=== PATIENT | male | born 2000 | race Caucasian/White ===

== ENCOUNTER 2025-03-20 12:51 | Emergency (ER) | payer BC, SELFPAY ==
[2025-03-20 12:58] VITALS: BP 137/80
[2025-03-20] MEDS: ZOFRAN ODT (ORALLY DISINTEGRATING) 4 MG PO (13:03)
[2025-03-20 13:20] LABS: Hematocrit 45.5 % (39.0-52.0); Hemoglobin 16.2 g/dL (13.0-18.0); Mean Corp Hgb Conc. 35.6 g/dL (33.0-37.0); Mean Corpuscular Volume 84.1 fL (80.0-94.0); Nucleated Red Blood Cells % 0 % (-); Platelet Count 253 10^3/uL (130-400); Red Cell Dist. Width 12.1 % (11.5-14.5)
[2025-03-20 13:51] LABS: ALT (SGPT) 23 U/L (0-50); AST (SGOT) 30 U/L (17-59); Albumin 5.5 g/dl (3.5-5.0); Alkaline Phosphatase 66 U/L (38-126); Blood Urea Nitrogen 16 mg/dl (9-20); Calcium 10.4 mg/dl (8.4-10.2); Carbon Dioxide 25 mmol/L (22-30); Chloride 102 mmol/L (98-107); Glucose 120 mg/dl (70-99); Lipase 45 U/L (23-300); Potassium 3.8 mmol/L (3.5-5.1); Sodium 139 mmol/L (135-145); Total Protein 8.0 g/dl (6.3-8.2); eGFR > 60.00
--- NOTE | 2025-03-20 15:21 | EDRN ---
Dr. Evans in to see pt at this time.
[2025-03-20] MEDS: NSS 1000 IV (15:33)
[2025-03-20] MEDS: PROTONIX IV 40 MG IV (15:40)
[2025-03-20] MEDS: ZOFRAN 4 MG IV (15:40)
[2025-03-20 15:45] VITALS: BMI 26.5
[2025-03-20 16:10] VITALS: BP 127/97
--- NOTE | 2025-03-20 16:48 | ED.GENMED ---
History of Present Illness
General
Chief Complaint: Abdominal Symptoms
Source: patient
Exam Limitations: none
Time Seen by Provider: 03/20/25 15:15
Nursing documentation reviewed up to this point in time: agreed with
History of Present Illness
History of Present Illness:
Patient presents to ED secondary to persistent nausea and vomiting over the past 4 days. Symptoms started while he was eating buffet lunch on Wednesday afternoon. Patient has had persistent vomiting episodes over the next 2 days. Yesterday, patient
states that he did not have any vomiting episodes and was under the impression that his symptoms may have resolved. However, today, patient states that his symptoms have returned with more vomiting episodes. Denies fever or chills. Denies
diarrhea. Unfortunately, patient states that he has had similar episodes in the past, at least twice a year but has not had any follow-up with GI physician., Denies recent travel. Denies sick contact. Denies recent change in diet. Denies recent
weight loss.
Past History
Past History
ED Past Medical History: None
ED Past Surgical History: Other
Social History
Tobacco: Non-smoker
Drug: None
Personal: Single
Living: with family
Employment: Student
Family History
Family History: Other
Review of Systems
Review of Systems
Allergies reviewed?: Yes
Constitutional: Reports no symptoms; Denies fever
Respiratory: Reports no symptoms
Cardiac: Reports no symptoms
ABD/GI: Reports nausea and vomiting; Denies diarrhea
Musculoskeletal: Reports no symptoms
Skin: Reports no symptoms
Neurological: Reports no symptoms
Phy Exam
Physical Exam
Physical Exam:
Physical Exam
General: no apparent distress, not acutely ill. afebrile
Head: nc/at. eomi
Neck: supple. no meningeal signs.
Heart: s1/s2 regular rate and rhythm
Lungs: no acute respiratory distress. clear bilaterally
Abdomen: normal bowel sounds. not tender.no distention
Neuro: alert and oriented x 3. no focal neurological deficits
Skin: no rash
Psychiatric: well kept. interactive and cooperative
Extremities: no edema. no calf tenderness.
Course
Orders/Labs/Results
Orders:
Orders
03/20/25 13:02
Ondansetron Orally Disint [Zofran Odt (Orally Disintegrating)] 4 mg .ROUTE .STK-MED ONE
03/20/25 13:03
Ondansetron Orally Disint [Zofran Odt (Orally Disintegrating)] 4 mg PO NOW STA
03/20/25 13:13
Complete Blood Count/With Diff Urgent
Comprehensive Metabolic Panel Urgent
Lipase Urgent
03/20/25 15:30
0.9% Sodium Chloride 1000 ml [Nss] 1,000 ml IV BOLUS
Ondansetron Injectable [Zofran] 4 mg IV NOW STA
Pantoprazole [Protonix IV] 40 mg IV NOW STA
Abnormal Lab Results
03/20/25
13:13
Absolute Lymphs (auto) 0.9 L 10^3/uL
(1.2-3.4)
Neutrophils % 81.6 H %
(42.2-75.2)
Lymphocytes % 12.6 L %
(20.5-51.1)
Glucose 120 H mg/dl
(70-99)
Calcium 10.4 H mg/dl
(8.4-10.2)
Total Bilirubin 2.1 H mg/dl
(0.2-1.3)
Albumin 5.5 H g/dl
(3.5-5.0)
03/20/25 13:13
03/20/25 13:13
Vital Signs
Initial and Last Documented VS:
Initial Vital Signs
Temp Pulse Resp BP Pulse Ox
97.8 F 61 16 137/80 100
03/20/25 12:58 03/20/25 12:58 03/20/25 12:58 03/20/25 12:58 03/20/25 12:58
Last Documented Vital Signs
Temp Pulse Resp BP Pulse Ox
97.8 F 74 16 127/97 100
03/20/25 12:58 03/20/25 16:10 03/20/25 16:10 03/20/25 16:10 03/20/25 16:51
MDM/Problems Addressed
MDM/Problems Addressed:
Patient without any further vomiting episodes after treatment in ED. otherwise, patient remains afebrile, hemodynamically stable, and nontoxic-appearing, during observation in the ED. Patient presenting symptoms nonspecific, likely secondary to
underlying gastritis versus food reaction versus viral illness. However, in light of patient's multiple episodes over the years, patient will be referred to gastroenterology service as an outpatient for consultation. Return precautions provided.
*Pulse Oximetry
SaO2: 100
Oxygen Mode of Delivery: Room air
Patient hypoxic: no
*Critical Care Note
Total Time (30-74mins, 75-104mins- exclusive of procedures): Not Applicable
ED Attending Note
-
Portions of this chart may have been created with voice recognition software.� Occasional wrong word or��sound alike� substitutions may have occurred due to the inherent limitations of voice recognition software.
Discharge Plan
Departure
Patient Disposition: Home (Routine Discharge)
Date of Disposition: 03/20/25
Time of Disposition: 17:00
Patient with high blood pressure during this ER visit?: Yes
Condition: Good
Discharge Problem:
Nausea & vomiting
Instructions: Nausea and Vomiting, Adult (DC)
Prescriptions:
New
ondansetron 4 mg Tablet,Disintegrating
4 mg PO TIDPRN PRN (Reason: nausea/vomiting) Qty: 12 0RF
No Action
hydrocodone-acetaminophen 1 TABLET tablet
1 tab PO Q4HPRN PRN (Reason: moderate to severe pain) 5 Days Qty: 10 0RF
Referrals:
Navjot Benitez MD [Family Provider, Family Practice]
Activity Restrictions/Additional Instructions:
As discussed, please follow-up with your primary care physician and/or referred GI physician for further evaluation and treatment. Please consider return to ED with worsening symptoms, i.e. fever/persistent vomiting/worsening pain. Your
prescription has been sent electronically to [facility] pharmacy in [place].
Interventions
Interventions:
*Risk Screen - Suicide Last Done: 03/20/25 15:45
*General Assessment Last Done: 03/20/25 15:45
*Neglect/Abuse Screening Last Done: 03/20/25 15:45
*ED- Fall Risk Assessment Last Done: 03/20/25 15:45
*ED COVID-19 Vaccine History Last Done: 03/20/25 15:45
*Nursing Disposition Last Done: 03/20/25 17:15
NK-Dadtuz-Zgidzrqqrs Assessment Last Done: 03/20/25 15:45
Discharge Date and Time
Discharge Date/Time: 03/20/25 17:16
Print Language: KOREAN
--- NOTE | 2025-03-20 16:50 | EDRN ---
Dr. Evans in to see pt.
== END 2025-03-20 17:16 | disposition home or self-care (01) ==
LOC: EMR 12:51
PROVIDERS: Emergency Medicine; EMERGENCY PHYSICIAN Emergency Medicine; FAMILY PHYSICIAN Family Medicine
DX: R11.2 Nausea with vomiting, unspecified (principal)
CPT/HCPCS: 96374; 96375; 96361; 99284; 80053; 83690; 85025

== ENCOUNTER 2025-03-24 13:32 | Emergency (ER) | payer BC, SELFPAY ==
[2025-03-24] VITALS (7 sets, daily range): BP systolic 132–158; BP diastolic 71–93
[2025-03-24] MEDS: BENADRYL 25 MG IV (15:17)
[2025-03-24] MEDS: NSS 1000 IV (15:18)
[2025-03-24] MEDS: REGLAN 10 MG IV (15:18)
[2025-03-24 15:31] LABS: Hematocrit 42.6 % (39.0-52.0); Hemoglobin 15.2 g/dL (13.0-18.0); Mean Corp Hgb Conc. 35.7 g/dL (33.0-37.0); Mean Corpuscular Volume 84.5 fL (80.0-94.0); Nucleated Red Blood Cells % 0 % (-); Platelet Count 217 10^3/uL (130-400); Red Cell Dist. Width 12.2 % (11.5-14.5)
[2025-03-24 15:32] LABS: Urine Character Slightly Cloudy (Clear)
[2025-03-24 15:44] LABS: Urine Red Blood Cell 0-2 /HPF (0-2)
[2025-03-24 15:50] LABS: Blood Urea Nitrogen 14 mg/dl (9-20); Calcium 9.2 mg/dl (8.4-10.2); Carbon Dioxide 22 mmol/L (22-30); Chloride 105 mmol/L (98-107); Glucose 77 mg/dl (70-99); Lipase 45 U/L (23-300); Sodium 139 mmol/L (135-145); eGFR > 60.00
[2025-03-24] MEDS: ZOFRAN 4 MG IV (17:49)
[2025-03-24 18:00] LABS: Potassium 4.0 mmol/L (3.5-5.1)
[2025-03-24] MEDS: MAALOX 50 PO (19:28)
--- NOTE | 2025-03-24 20:31 | ED.GENMED ---
History of Present Illness
General
Chief Complaint: Abdominal Symptoms
Source: patient and family
Exam Limitations: none
Time Seen by Provider: 03/24/25 14:02
History of Present Illness
History of Present Illness:
Note:
CHIEF COMPLAINT(S)
Vomiting for one week
HISTORY OF PRESENT ILLNESS
The patient is a 24-year-old male who presents with a history of vomiting persisting since last Wednesday, approximately one week ago. The patient notes that the vomiting was initially accompanied by a single instance of leblanc-colored vomit observed
recently while waiting in the lobby. He denies any stool changes, diarrhea, or presence of blood in vomit or stool. The vomiting intensified after a seemingly brief period of improvement early on, roughly a day after symptom onset. He mentions that
he vomited at work two to three days prior to last Wednesday, marking a total shift in his condition. He has experienced significant pain during vomiting episodes, which he localizes to an area that was suggested to be stomach-related by previous
clinicians. The patient had a notable improvement in symptoms after receiving intravenous fluids and a gastrointestinal cocktail during a prior emergency room visit, which also enabled him to drink oral rehydration solutions comfortably. He has not
experienced fever, though he reports feeling cold and clammy at times.
The patient notes that he has not been able to drink adequately due to nausea, and medications such as Zofran have offered minimal relief. Reglan was introduced on a trial basis, but effectiveness remains uncertain due to its recent administration.
The patient also mentions a scheduled appointment for further evaluation on Wednesday.
ADDITIONAL HISTORY OBTAINED FROM SOURCES OTHER THAN THE PATIENT
The patients family member mentioned that previous similar vomiting episodes occurred about a year and a half ago, lasting three days, and a shorter episode historically. Stress-related factors, such as a new job, were suggested as potential
contributors during those times.
EXTERNAL RECORDS REVIEWED
The patient underwent a computed tomography (CT) scan at [place], which reportedly did not reveal any significant findings. He also mentioned previous emergency room visits where labs and an additional CT scan were performed.
CHRONIC MEDICAL CONDITIONS SIGNIFICANTLY AFFECTING CARE
The patient has a past medical history of febrile seizures during childhood and a testicular torsion, which was surgically resolved with bilateral fixation. He also experiences occasional premature ventricular contractions (PVCs) and described a
condition related to a 'sticky valve' in the heart, although not identified as mitral valve prolapse.
SOCIAL DETERMINANTS AFFECTING HEALTH
The patient admits to occasional marijuana use, varying in frequency, but not in the past week and a half. This information prompted a discussion about the possibility of cannabinoid hyperemesis syndrome as a differential diagnosis, given the
historical patterns of vomiting and marijuana use. The patient also consumes alcohol once weekly.
ALLERGIES
No known drug allergies.
SOCIAL HISTORY
- Alcohol: Consumes once weekly.
- Marijuana: Occasionally, with noted cessation for the past week and a half. Frequency of use varies.
MEDICATIONS
Occasional use of previously prescribed opioid pain medication (Hydrocodone) from a past prescription, primarily for pain management related to vomiting episodes.
REVIEW OF SYSTEMS
- Gastrointestinal: Persistent vomiting for one week, leblanc-colored vomit recently, no diarrhea, no blood in vomit or stool.
- General: Denies fever, notes feeling cold and clammy on occasion.
PHYSICAL EXAM
General: Alert, no acute distress.
Gastrointestinal: Mild tenderness in the epigastric region. Abdomen nondistended, normal bowel sounds.
Cardiovascular: Regular heart rate, no murmurs.
Respiratory: Lungs clear upon auscultation.
Neurological: Grossly intact, no focal deficits noted.
PROBLEM LIST
Acute:
- Persistent vomiting
- Epigastric tenderness
Chronic:
- History of febrile seizures
- Occasional PVCs
- History of testicular torsion with surgical correction
- 'Sticky valve' issue
PLAN
- Ultrasound of the upper abdomen to assess the liver, pancreas, and gallbladder for potential sources of pain or vomiting.
- Continue supportive care with IV fluids, including those with sugar for energy provision.
- Administer Reglan with Benadryl to counter potential side effects seen in some patients.
- Suggest avoidance of marijuana based on the discussion around cannabinoid hyperemesis syndrome and consider long-term cessation.
DIFFERENTIAL DIAGNOSIS
The Differential Diagnosis includes, in no particular order and is not limited to:
- Gastroenteritis
- Peptic ulcer disease
- Gastritis
- Food poisoning
- Gallstones
- Pancreatitis
- Gastroparesis
- Cannabinoid hyperemesis syndrome
- Cyclic vomiting syndrome
- Stress-induced psychogenic vomiting
Disposition:
SUMMARY OF ENCOUNTER
The patient is a 24-year-old male who presented to the emergency department with persistent non-bloody vomiting, an issue that has been ongoing. He has experienced similar episodes in the past. Examination and lab work, including temperature and
CBC, are within normal limits. A CT scan was performed previously and found to be normal. An ultrasound conducted today also returned normal results. Notably, there are ketones in the urine. During the emergency department visit, he had no further
vomiting episodes. He admitted to occasional marijuana use, raising the question of cannabinoid hyperemesis syndrome. Given his stable condition and normal investigations, outpatient management was deemed reasonable.
DISPOSITION
Discharge.
ASSESSMENT
Persistent vomiting.
PLAN
1. Recommend the patient continue current medications, including metoclopramide for motility issues, ondansetron for nausea, pantoprazole for acid suppression, and sucralfate.
2. Suggest continued abstinence from marijuana use to evaluate potential relation to symptoms.
3. Encourage follow-up with gastroenterology as planned on Wednesday.
FOLLOW-UP INSTRUCTIONS
The patient should continue scheduled follow-up with gastroenterology on Wednesday.
MEDICATION RECONCILIATION
- Metoclopramide: Recommended continuous use for two days to assess for potential improvement in motility.
- Ondansetron (Zofran): Continue at home for nausea.
- Pantoprazole: Continue for acid suppression.
- Sucralfate: Continue as prescribed.
MEDICAL DECISION MAKING
1. Number and Complexity of Problems Addressed:
- Chronic conditions affecting care include persistent vomiting, occasional marijuana use with consideration of cannabinoid hyperemesis syndrome.
2. Data: Amount and/or Complexity of Data Reviewed and Analyzed
- Category 1:
- Non-emergency department records reviewed, including previous CT scan showing no significant findings.
- Clinical information obtained from the patient regarding marijuana use and past similar episodes.
- Category 2:
- My independent interpretation of the ultrasound performed today showed normal results.
3. Risk:
Consideration of Admission/Observation: Escalation of care including admission/observation was considered given the complexity and risk of the patients presenting complaint, exam findings, and/or their underlying comorbidities. However, ultimately
the patient is deemed safe for outpatient management with close follow-up. Reasoning: Work-up is reassuring, with no acute life/organ-threatening processes revealed, patient symptoms are well controlled upon reevaluation, and vitals are stable.
DIAGNOSIS
- Persistent vomiting (R11.10)
- Possible Cannabinoid Hyperemesis Syndrome (unknown ICD-10 code, consider R11.10)
Past History
Past History
ED Past Medical History: None
ED Past Surgical History: Other
Social History
Tobacco: Non-smoker
Drug: None
Personal: Single
Living: with family
Employment: Student
Family History
Family History: Other
Phy Exam
Physical Exam
Physical Exam:
.
Course
Orders/Labs/Results
Orders:
Orders
03/24/25 14:40
0.9% Sodium Chloride 1000 ml [Nss] 1,000 ml IV BOLUS
Diphenhydramine [Benadryl] 25 mg IV NOW STA
Metoclopramide [Reglan] 10 mg IV NOW STA
03/24/25 14:41
US Abdomen Complete/Upper Urgent
Comment:
Reason For Exam: upper abd pain, vomiting
03/24/25 15:17
Basic Metabolic Panel Urgent
Complete Blood Count/With Diff Urgent
Lipase Urgent
Urinalysis Reflex To Culture Urgent
Date Specimen was Collected: 03/24/25
Time Specimen was Collected: 15:02
Urine Drug Abuse Screen Urgent
Date Specimen was Collected: 03/24/25
Time Specimen was Collected: 15:02
Urine Microscopic Reflex Cult Urgent
03/24/25 16:57
Add On- LAB Urgent
Tests Added?: urine drug abuse screen
03/24/25 17:33
Potassium Urgent
03/24/25 17:45
Ondansetron Injectable [Zofran] 4 mg IV NOW STA
03/24/25 19:18
Mag Hydrox/Al Hydrox/Simeth [Maalox] 30 ml Phenobarb/Hyoscy/Atropine/Scop [] 10 ml Viscous Lidocaine 2% [Xylocaine Viscous Cup] 10 ml PO NOW
03/24/25 19:24
Phenobarb/Hyoscy/Atropine/Scop [] 10 ml .ROUTE .STK-MED ONE
03/24/25 19:25
Mag Hydrox/Al Hydrox/Simeth [Maalox] 30 ml .ROUTE .STK-MED ONE
Viscous Lidocaine 2% [Xylocaine Viscous Cup] 15 ml .ROUTE .STK-MED ONE
Abnormal Lab Results
03/24/25
15:17
Absolute Lymphs (auto) 0.8 L 10^3/uL
(1.2-3.4)
Neutrophils % 81.9 H %
(42.2-75.2)
Lymphocytes % 11.5 L %
(20.5-51.1)
Urine Ketones 3+ A
(Negative)
Urine Bacteria (Reflex) Few A
(Negative)
Urine Albumin (Reflex) 2+ A
(Neg - Trace)
U Marijuana (THC) Screen Positive H
(Negative)
03/24/25 15:17
03/24/25 17:33
Vital Signs
Initial and Last Documented VS:
Initial Vital Signs
Temp Pulse Resp BP Pulse Ox
98.5 F 68 18 158/93 98
03/24/25 13:40 03/24/25 13:40 03/24/25 13:40 03/24/25 13:40 03/24/25 13:40
Last Documented Vital Signs
Temp Pulse Resp BP Pulse Ox
98.5 F 75 18 155/83 98
03/24/25 13:40 03/24/25 17:47 03/24/25 13:40 03/24/25 20:27 03/24/25 20:45
*Pulse Oximetry
SaO2: 100
Oxygen Mode of Delivery: Room air
Patient hypoxic: no
*Critical Care Note
Total Time (30-74mins, 75-104mins- exclusive of procedures): Not Applicable
ED Attending Note
-
Portions of this chart may have been created with voice recognition software.� Occasional wrong word or��sound alike� substitutions may have occurred due to the inherent limitations of voice recognition software.
Discharge Plan
Departure
Patient Disposition: Home (Routine Discharge)
Date of Disposition: 03/24/25
Time of Disposition: 20:32
Patient with high blood pressure during this ER visit?: Yes
Discharge Problem:
Nausea & vomiting
Instructions: Clear Liquid Diet, Nausea and Vomiting, Adult (DC)
Prescriptions:
No Action
hydrocodone-acetaminophen 1 TABLET tablet
1 tab PO Q4HPRN PRN (Reason: moderate to severe pain) 5 Days Qty: 10 0RF
ondansetron 4 mg Tablet,Disintegrating
4 mg PO TIDPRN PRN (Reason: nausea/vomiting) Qty: 12 0RF
Referrals:
Abel Keenan DO [Family Provider, Family Practice]
Activity Restrictions/Additional Instructions:
Continue your current medication regimen as discussed. Please see gastroenterology as planned on Wednesday. Advance diet very slowly. Return immediately for fevers, bloody vomitus, blood in stool or any other concerns.
Interventions
Interventions:
*Risk Screen - Suicide Last Done: 03/24/25 13:40
*General Assessment Last Done: 03/24/25 13:40
*Neglect/Abuse Screening Last Done: 03/24/25 13:40
*Nursing Disposition Last Done: 03/24/25 20:51
KH-Lrtyhk-Hqgybcpfkf Assessment Last Done: 03/24/25 17:00
Discharge Date and Time
Discharge Date/Time: 03/24/25 20:52
Print Language: WELSH
== END 2025-03-24 20:52 | disposition home or self-care (01) ==
LOC: EMR 13:32
PROVIDERS: EMERGENCY PHYSICIAN Emergency Medicine; FAMILY PHYSICIAN Student in an Organized Health Care Education/Training Program
DX: R11.2 Nausea with vomiting, unspecified (principal); I34.1 Nonrheumatic mitral (valve) prolapse; I49.3 Ventricular premature depolarization
CPT/HCPCS: 99284; 96374; 96375; 96361; 76700; 80048; 80306; 81003; 81015; 83690; 84132; 85025